=== PATIENT | male | born 1950 | race Caucasian/White ===

== ENCOUNTER 2017-12-18 02:45 | Inpatient (IN) | payer MEDICARE ==
[~2017-12-18] VITALS: Ht 175.3 cm; Wt 97.5 kg
[~2017-12-18 02:45] MED LIST: AMIO200T PO; AMIO200T42 PO; APIX5TAB PO; ASPI-496 PO; BENA40TA2 PO; DEXA2TAB PO; DILT120T3 PO; ESCI10TA10 PO; ESCI20TA10 PO; FLEC50TA25 PO; HYDR12.53 PO; LENA5CAP PO; OMEP20CA9 PO; OXYC1TAB7 PO; RIVA20TA PO; TAMS-11 PO; TERA1CAP3 PO
[2017-12-18] MEDS ORDERED: ASPIRIN 81 MG TABLET CHEW ONE (03:16)
[2017-12-18] MEDS ORDERED: ASPIRIN 81 MG TABLET CHEW PO ONE (03:30)
[2017-12-18] MEDS ORDERED: SODIUM CHLORIDE FLUSH 10ML SYR IVF ONE (03:30)
[2017-12-18 03:39] LABS: BASOPHILS # (AUTO) 0.01 x10^3/uL (0-0.1); BASOPHILS % (AUTO) 0 % (0-1); EOSINOPHILS % (AUTO) 3 % (1-7); LYMPHOCYTES # (AUTO) 1.11 x10^3/uL (1-3.4); LYMPHOCYTES % (AUTO) 28 % (22-44); MD NO; MEAN CORPUSCULAR HEMOGLOBIN 34.4 pg (27.5-34.5); MEAN CORPUSCULAR HGB CONC 33.7 g/dL (33.2-36.2); MEAN PLATELET VOLUME 8.1 fL (7.4-10.4); MONOCYTES # (AUTO) 0.71 x10^3/uL (0.2-0.8); MONOCYTES % (AUTO) 18 % (2-9); NEUTROPHILS # (AUTO) 1.99 x10^3/uL (1.8-6.8); NEUTROPHILS % (AUTO) 51 % (42-75); PLATELET COUNT 139 x10^3/uL (130-400); RED BLOOD COUNT 4.27 x10^6/uL (4.38-5.82); RED CELL DISTRIBUTION WIDTH 15.1 % (9.4-14.8)
[2017-12-18 03:47] LABS: ANION GAP 6 mmol/L (5-15); CALCIUM 8.5 mg/dL (8.5-10.1); CHLORIDE 112 mmol/L (98-107); CREATININE 0.88 mg/dL (0.7-1.3)
[2017-12-18 03:51] LABS: TROPONIN I < 0.015 ng/mL (0.000-0.045)
[2017-12-18] MEDS ORDERED: MORPHINE SULFATE 4 MG/ML, 1ML ONE (04:44)
[2017-12-18] MEDS ORDERED: ONDANSETRON 2MG/ML, 2ML ONE (04:44)
[2017-12-18] MEDS ORDERED: MORPHINE SULFATE 4 MG/ML, 1ML IVPush PRN (05:00)
[2017-12-18] MEDS ORDERED: ONDANSETRON 2MG/ML, 2ML IVPush ONE (05:00)
[2017-12-18 05:43] VITALS: BP 135/75
[2017-12-18] MEDS ORDERED: SODIUM CHLORIDE 0.9% 1,000 ML IV SCH (05:56)
[2017-12-18] MEDS ORDERED: ENALAPRILAT 1.25 MG/ML, 2ML IVPush PRN (06:00)
[2017-12-18] MEDS ORDERED: ACETAMINOPHEN 325 MG TABLET PO PRN (06:00)
[2017-12-18] MEDS ORDERED: BISACODYL 10 MG SUPP PR PRN (06:00)
[2017-12-18] MEDS ORDERED: ASPIRIN 325 MG TABLET EC PO SCH (06:00)
[2017-12-18] MEDS ORDERED: POLYETHYLENE GLYCOL 17 GM PACKET PO PRN (06:00)
[2017-12-18] MEDS ORDERED: hydrALAzine 20 MG/ML, 1ML IVPush PRN (06:00)
[2017-12-18] MEDS ORDERED: ONDANSETRON 2MG/ML, 2ML IVPush PRN (06:00)
[2017-12-18] MEDS ORDERED: morphine SULFATE 10 MG/ML, 1ML IVPush PRN (06:00)
[2017-12-18] MEDS ORDERED: PHARMACY INSTRUCTION MC PRN (06:30)
[2017-12-18] MEDS ORDERED: NITROGLYCERIN 0.4 MG BOTTLE (25 TABS) SL PRN (06:30)
[2017-12-18] MEDS: HEPARIN 5,000 UNITS/ML, 1ML SQ SCH ×2 (06:42→14:00)
[2017-12-18 06:52] LABS: FREE T4 (FREE THYROXINE) 1.36 ng/dL (0.76-1.46); THYROID STIMULATING HORMONE 1.32 mIU/L (0.358-3.740)
[2017-12-18 07:13] LABS: HEMOGLOBIN A1C 5.7 % (4.2-6.3)
[2017-12-18] MEDS ORDERED: AMIODARONE 200 MG TABLET ONE ×2 (07:34→07:36)
[2017-12-18] MEDS ORDERED: BENAZEPRIL 20 MG TABLET ONE (07:34)
[2017-12-18] MEDS ORDERED: ACET325T14 PO (07:57)
[2017-12-18] MEDS ORDERED: CYCL5TAB PO (07:57)
[2017-12-18 08:43] LABS: CHOLESTEROL, TOTAL 104 mg/dL (140-239); TRIGLYCERIDES 66 mg/dL (50-200); VLDL CHOLESTEROL 13 mg/dL (0-25)
[2017-12-18 08:46] LABS: HDL CHOLESTEROL (DIRECT) 59 mg/dL (40-60); TROPONIN I < 0.015 ng/mL (0.000-0.045)
[2017-12-18] MEDS ORDERED: REGADENOSON 0.4 MG/5 ML SYRINGE ONE (08:48)
[2017-12-18] MEDS ORDERED: SENNA/DOCUSATE TABLET PO SCH (09:00)
[2017-12-18] MEDS ORDERED: AMIODARONE 200 MG TABLET PO SCH (09:00)
[2017-12-18] MEDS ORDERED: TEMPLATE NON-FORMULARY MED. (Escitalopram Oxalate** (Lexapro**) 10 MG) HOMEMEDPO SCH (09:00)
[2017-12-18] MEDS ORDERED: LENALIDOMIDE 5 MG PO SCH (09:00)
[2017-12-18] MEDS ORDERED: BENAZEPRIL 20 MG TABLET PO SCH (09:00)
[2017-12-18] MEDS ORDERED: DILTIAZEM CD 180 MG CAP.ER.24H PO SCH (09:00)
[2017-12-18 10:03] LABS: CHOL/HDL RATIO 1.8; HDL CHOL % 57 % (26-37); LDL CHOLESTEROL,CALCULATED 32 mg/dL (54-169); LDL/HDL RATIO 0.5 (0.5-3.0)
[2017-12-18 14:04] VITALS: BP 124/73
[2017-12-18 14:39] LABS: MICROSCOPIC NOT IND
[2017-12-18 15:02] LABS: CULTURE INDICATED? NO
[2017-12-18 15:36] LABS: TROPONIN I < 0.015 ng/mL (0.000-0.045)
[2017-12-18] MEDS ORDERED: TAMSULOSIN 0.4 MG CAP.ER.24H PO SCH (21:00)
== END 2017-12-18 18:12 | disposition home or self-care (01) | DRG 292 ==
LOC: ED 04:24 → EDIP 04:36 → 5SO 05:30
PROVIDERS: ADMIT Internal Medicine; ATTEND Internal Medicine
DX: I11.0 Hypertensive heart disease with heart failure (principal); E44.0 Moderate protein-calorie malnutrition; I48.2 Chronic atrial fibrillation; R07.89 Other chest pain; C90.01 Multiple myeloma in remission; E78.5 Hyperlipidemia, unspecified; N40.0 Benign prostatic hyperplasia without lower urinary tract symptoms; I50.32 Chronic diastolic (congestive) heart failure; Z68.31 Body mass index [BMI] 31.0-31.9, adult; Z79.82 Long term (current) use of aspirin; Z85.6 Personal history of leukemia; Z91.19 Patient's noncompliance with other medical treatment and regimen
CPT/HCPCS: 36415; 71045; 78452; 80048; 80061; 81003; 82040; 83036; 83735; 83880; 84439; 84443; 84484; 85025; 93005; 93017; 96374; 96375; J1644; J2405; J2785; A9502; C9898; J7030

== ENCOUNTER → 2017-12-29 | Outpatient (CLI) | payer MEDICARE ==
[~2017-12-29] MED LIST changes: +ACET325T14 PO; +CYCL5TAB PO
== END | disposition home or self-care (01) ==
LOC: CFH 14:38
PROVIDERS: ATTEND Internal Medicine Cardiovascular Disease
DX: I48.91 Unspecified atrial fibrillation (principal)
CPT/HCPCS: 71046

== ENCOUNTER 2018-09-30 14:07 | Emergency (ER) | payer MEDICARE ==
[~2018-09-30] VITALS: Ht 182.9 cm; Wt 88.9 kg
[~2018-09-30 14:07] MED LIST changes: +AMOX1TAB12 PO; -BENA40TA2 PO; +BENA40TA3 PO; +GUAI200T3 PO
[2018-09-30] MEDS ORDERED: SODIUM CHLORIDE FLUSH 10ML SYR IVF ONE (14:30)
[2018-09-30 14:48] LABS: BASOPHILS # (AUTO) 0.02 x10^3/uL (0-0.1); BASOPHILS % (AUTO) 0 % (0-1); EOSINOPHILS # (AUTO) 0.04 x10^3/uL (0-0.4); EOSINOPHILS % (AUTO) 1 % (1-7); LYMPHOCYTES # (AUTO) 1.39 x10^3/uL (1-3.4); LYMPHOCYTES % (AUTO) 30 % (22-44); MD NO; MEAN CORPUSCULAR HEMOGLOBIN 33.5 pg (27.5-34.5); MEAN CORPUSCULAR HGB CONC 33.5 g/dL (33.2-36.2); MEAN CORPUSCULAR VOLUME 100.2 fL (81-97); MONOCYTES # (AUTO) 0.45 x10^3/uL (0.2-0.8); MONOCYTES % (AUTO) 10 % (2-9); NEUTROPHILS # (AUTO) 2.78 x10^3/uL (1.8-6.8); NEUTROPHILS % (AUTO) 59 % (42-75); PLATELET COUNT 172 x10^3/uL (130-400); RED BLOOD COUNT 4.12 x10^6/uL (4.38-5.82); RED CELL DISTRIBUTION WIDTH 15.8 % (9.4-14.8)
[2018-09-30 14:58] LABS: CALCIUM 8.5 mg/dL (8.5-10.1); CHLORIDE 110 mmol/L (98-107)
[2018-09-30 15:06] LABS: ALANINE AMINOTRANSFERASE 20 U/L (12-78); ALBUMIN 3.1 g/dL (3.4-5.0); ALKALINE PHOSPHATASE 94 U/L (45-117); ANION GAP 8 mmol/L (5-15); BILIRUBIN,TOTAL 0.6 mg/dL (0.2-1.0); CREATININE 0.84 mg/dL (0.7-1.3); TOTAL PROTEIN 6.9 g/dL (6.4-8.2); TROPONIN I < 0.015 ng/mL (0.000-0.045)
[2018-09-30] MEDS ORDERED: OMNIPAQUE 350 MG/ML, 100ML BOTTLE ONE (15:30)
[2018-09-30 16:53] VITALS: BP 116/79
== END 2018-09-30 17:11 | disposition home or self-care (01) ==
LOC: ED 14:55
DX: J18.9 Pneumonia, unspecified organism (principal); I10 Essential (primary) hypertension; R04.2 Hemoptysis; I48.91 Unspecified atrial fibrillation
CPT/HCPCS: 36415; 71275; 80053; 84484; 85025; 93005; 99285; Q9967

== ENCOUNTER 2018-11-26 02:03 | Inpatient (IN) | payer MEDICARE ==
[~2018-11-26] VITALS: Ht 172.7 cm; Wt 82.0 kg
[~2018-11-26 02:03] MED LIST changes: +HYDR12.517 PO; -HYDR12.53 PO
--- NOTE | 2018-11-26 02:19 | NUR ---
PT BIB [facility] TONIGHT BECAUSE OF INCREASING SOB AND CP AFTER SEVERAL DAY URI. PT REPORTS HISTORY OF LUNG CANCER AND HTN, BUT DENIES ANY OTHER MAJOR ILLNESSES. PT IN GOWN IN [facility]. PT ATTACHED TO FIELD INVESTIGATOR, PULSE OXIMETER, AND BP CUFF. PT VSS. ALICIA VAZQUEZ AT FOR PT HISTORY AND ASSESSMENT. PT EDUCATED ON ER PROCESS AND POC AND VERBALIZES UNDERSTANDING. CALL LIGHT WITHIN REACH. PT DENIES ANY OTHER NEEDS AT THIS TIME. AWAITING NEW ORDERS.
[2018-11-26 02:36] LABS: BASOPHILS # (AUTO) 0.02 x10^3/uL (0-0.1); BASOPHILS % (AUTO) 0 % (0-1); EOSINOPHILS # (AUTO) 0.19 x10^3/uL (0-0.4); EOSINOPHILS % (AUTO) 4 % (1-7); LYMPHOCYTES # (AUTO) 1.09 x10^3/uL (1-3.4); LYMPHOCYTES % (AUTO) 23 % (22-44); MD NO; MEAN CORPUSCULAR HEMOGLOBIN 32.7 pg (27.5-34.5); MEAN CORPUSCULAR VOLUME 96.2 fL (81-97); MEAN PLATELET VOLUME 7.7 fL (7.4-10.4); MONOCYTES # (AUTO) 0.55 x10^3/uL (0.2-0.8); MONOCYTES % (AUTO) 12 % (2-9); NEUTROPHILS # (AUTO) 2.81 x10^3/uL (1.8-6.8); NEUTROPHILS % (AUTO) 60 % (42-75); PLATELET COUNT 203 x10^3/uL (130-400); RED BLOOD COUNT 3.71 x10^6/uL (4.38-5.82); RED CELL DISTRIBUTION WIDTH 14.9 % (9.4-14.8)
[2018-11-26 02:50] LABS: ALANINE AMINOTRANSFERASE 14 U/L (12-78); ALBUMIN 2.8 g/dL (3.4-5.0); ANION GAP 5 mmol/L (5-15); CALCIUM 8.6 mg/dL (8.5-10.1); CHLORIDE 109 mmol/L (98-107)
[2018-11-26 02:52] LABS: ALKALINE PHOSPHATASE 97 U/L (45-117); BILIRUBIN,TOTAL 0.6 mg/dL (0.2-1.0); TOTAL PROTEIN 6.1 g/dL (6.4-8.2)
[2018-11-26 02:54] LABS: TROPONIN I 0.044 ng/mL (0.000-0.045)
[2018-11-26] MEDS ORDERED: OMNIPAQUE 350 MG/ML, 100ML BOTTLE ONE (03:43)
--- NOTE | 2018-11-26 03:57 | NUR ---
pt back from ct. pt resting comfortably in [facility] at this time;
--- NOTE | 2018-11-26 04:29 | NUR ---
PT RESTING IN [facility]. PT DENIES ANY NEEDS AT THIS TIME. PT HAS CALL LIGHT WITHIN REACH.
[2018-11-26 04:50] LABS: CULTURE INDICATED? YES; MICROSCOPIC INDICATED
[2018-11-26] MEDS ORDERED: MORPHINE SULFATE 4 MG/ML, 1ML IVPush PRN (05:00)
[2018-11-26] MEDS ORDERED: ONDANSETRON 2MG/ML, 2ML IVPush PRN ×2 (05:00→05:30)
[2018-11-26] MEDS: ENOXAPARIN 40 MG/0.4 ML SQ SCH (05:30)
[2018-11-26] MEDS ORDERED: hydrALAzine 20 MG/ML, 1ML IVPush PRN (05:30)
[2018-11-26] MEDS ORDERED: morphine SULFATE 10 MG/ML, 1ML IVPush PRN (05:30)
[2018-11-26] MEDS ORDERED: GUAIFENESIN/COD200MG-20MG/10ML LIQUID PO PRN (05:30)
[2018-11-26] MEDS ORDERED: DOCUSATE 100 MG CAPSULE PO PRN (05:30)
[2018-11-26] MEDS ORDERED: ACETAMINOPHEN 325 MG TABLET PO PRN (05:30)
[2018-11-26 06:18] VITALS: BP 113/73
[2018-11-26] MEDS ORDERED: BENAZEPRIL 10 MG TABLET ONE ×2 (08:23→20:43)
[2018-11-26] MEDS: PIPERACILLIN/TAZO/PMX 3.375GM 50 ML IV SCH ×3 (08:31→20:45)
[2018-11-26] MEDS: CITALOPRAM 20 MG TABLET PO SCH (08:32)
[2018-11-26] MEDS: BENAZEPRIL 20 MG TABLET PO SCH ×2 (08:32→20:49)
[2018-11-26] MEDS: DILTIAZEM CD 180 MG CAP.ER.24H PO SCH (08:33)
[2018-11-26 10:05] LABS: TROPONIN I 0.041 ng/mL (0.000-0.045)
[2018-11-26] MEDS: HYDROcodone/APAP 5/325 TABLET PO PRN ×2 (10:07→20:16)
[2018-11-26 13:11] VITALS: BP 113/70
[2018-11-26 14:51] LABS: TROPONIN I 0.032 ng/mL (0.000-0.045)
[2018-11-26 20:22] VITALS: BP 113/69
[2018-11-26] MEDS: TAMSULOSIN 0.4 MG CAP.ER.24H PO SCH (20:45)
[2018-11-26] MEDS ORDERED: TEMAZEPAM 15 MG CAPSULE PO PRN (23:00)
[2018-11-27] MEDS: PIPERACILLIN/TAZO/PMX 3.375GM 50 ML IV SCH ×4 (03:24→21:44)
[2018-11-27 03:27] VITALS: BP 98/59
[2018-11-27] MEDS: ENOXAPARIN 40 MG/0.4 ML SQ SCH (04:54)
[2018-11-27 05:30] LABS: ANION GAP 5 mmol/L (5-15); CALCIUM 8.3 mg/dL (8.5-10.1); CHLORIDE 106 mmol/L (98-107)
[2018-11-27 05:34] LABS: CHOLESTEROL, TOTAL 87 mg/dL (140-239); CREATININE 0.81 mg/dL (0.7-1.3); HDL CHOLESTEROL (DIRECT) 38 mg/dL (40-60); TRIGLYCERIDES 59 mg/dL (50-200); VLDL CHOLESTEROL 12 mg/dL (0-25)
[2018-11-27 05:35] LABS: CHOL/HDL RATIO 2.3; HDL CHOL % 44 % (26-37); LDL CHOLESTEROL,CALCULATED 37 mg/dL (54-169)
[2018-11-27 05:46] LABS: BASOPHILS # (AUTO) 0.02 x10^3/uL (0-0.1); BASOPHILS % (AUTO) 0 % (0-1); EOSINOPHILS # (AUTO) 0.29 x10^3/uL (0-0.4); EOSINOPHILS % (AUTO) 6 % (1-7); LYMPHOCYTES # (AUTO) 1.08 x10^3/uL (1-3.4); LYMPHOCYTES % (AUTO) 22 % (22-44); MD NO; MEAN CORPUSCULAR HEMOGLOBIN 33.6 pg (27.5-34.5); MEAN CORPUSCULAR HGB CONC 34.4 g/dL (33.2-36.2); MEAN CORPUSCULAR VOLUME 97.8 fL (81-97); MEAN PLATELET VOLUME 8.4 fL (7.4-10.4); MONOCYTES # (AUTO) 0.57 x10^3/uL (0.2-0.8); MONOCYTES % (AUTO) 12 % (2-9); NEUTROPHILS # (AUTO) 2.99 x10^3/uL (1.8-6.8); NEUTROPHILS % (AUTO) 60 % (42-75); PLATELET COUNT 185 x10^3/uL (130-400); RED BLOOD COUNT 3.43 x10^6/uL (4.38-5.82); RED CELL DISTRIBUTION WIDTH 15.3 % (9.4-14.8)
[2018-11-27 07:41] VITALS: BP 99/64
[2018-11-27] MEDS: DILTIAZEM CD 180 MG CAP.ER.24H PO SCH (08:36)
[2018-11-27] MEDS: BENAZEPRIL 20 MG TABLET PO SCH ×2 (08:36→19:30)
[2018-11-27] MEDS: CITALOPRAM 20 MG TABLET PO SCH (08:36)
[2018-11-27 13:15] VITALS: BP 107/65
[2018-11-27] MEDS ORDERED: BENAZEPRIL 10 MG TABLET ONE (19:24)
[2018-11-27] MEDS: HYDROcodone/APAP 5/325 TABLET PO PRN (19:29)
[2018-11-27] MEDS: TAMSULOSIN 0.4 MG CAP.ER.24H PO SCH (19:29)
[2018-11-27 20:18] VITALS: BP 107/62
[2018-11-28] MEDS: HYDROcodone/APAP 5/325 TABLET PO PRN (00:05)
[2018-11-28 02:39] VITALS: BP 110/69
[2018-11-28] MEDS: PIPERACILLIN/TAZO/PMX 3.375GM 50 ML IV SCH ×2 (03:29→08:40)
[2018-11-28 05:14] LABS: BASOPHILS # (AUTO) 0.02 x10^3/uL (0-0.1); BASOPHILS % (AUTO) 0 % (0-1); EOSINOPHILS # (AUTO) 0.14 x10^3/uL (0-0.4); EOSINOPHILS % (AUTO) 3 % (1-7); LYMPHOCYTES # (AUTO) 0.94 x10^3/uL (1-3.4); LYMPHOCYTES % (AUTO) 18 % (22-44); MD NO; MEAN CORPUSCULAR HGB CONC 32.7 g/dL (33.2-36.2); MEAN CORPUSCULAR VOLUME 97.9 fL (81-97); MEAN PLATELET VOLUME 8.2 fL (7.4-10.4); MONOCYTES # (AUTO) 0.55 x10^3/uL (0.2-0.8); MONOCYTES % (AUTO) 11 % (2-9); NEUTROPHILS # (AUTO) 3.51 x10^3/uL (1.8-6.8); NEUTROPHILS % (AUTO) 68 % (42-75); PLATELET COUNT 181 x10^3/uL (130-400); RED BLOOD COUNT 3.43 x10^6/uL (4.38-5.82)
[2018-11-28 05:24] LABS: ANION GAP 6 mmol/L (5-15); CALCIUM 7.9 mg/dL (8.5-10.1); CHLORIDE 104 mmol/L (98-107); CREATININE 0.73 mg/dL (0.7-1.3)
[2018-11-28] MEDS: ENOXAPARIN 40 MG/0.4 ML SQ SCH (05:52)
[2018-11-28 07:49] VITALS: BP 102/66
[2018-11-28] MEDS ORDERED: BENAZEPRIL 10 MG TABLET ONE ×2 (07:59→08:00)
[2018-11-28] MEDS: CITALOPRAM 20 MG TABLET PO SCH (08:07)
[2018-11-28] MEDS: DILTIAZEM CD 180 MG CAP.ER.24H PO SCH (08:08)
[2018-11-28] MEDS: BENAZEPRIL 20 MG TABLET PO SCH (08:09)
[2018-11-28] MEDS ORDERED: Guaifenesin/Cod200mg-20MG/10ML PO (10:16)
[2018-11-28] MEDS ORDERED: CEFD300C37 PO ×2 (10:16)
[2018-11-28] MEDS ORDERED: ACET325T14 PO (10:16)
== END 2018-11-28 17:19 | disposition home or self-care (01) | DRG 177 ==
LOC: ED 02:52 → EDIP 04:53 → 5SO 06:24
PROVIDERS: ADMIT Internal Medicine; ATTEND Internal Medicine
DX: J15.6 Pneumonia due to other Gram-negative bacteria (principal); E43 Unspecified severe protein-calorie malnutrition; I50.32 Chronic diastolic (congestive) heart failure; C90.00 Multiple myeloma not having achieved remission; C78.00 Secondary malignant neoplasm of unspecified lung; E78.5 Hyperlipidemia, unspecified; I11.0 Hypertensive heart disease with heart failure; Z68.27 Body mass index [BMI] 27.0-27.9, adult; Z87.891 Personal history of nicotine dependence; Z82.49 Family history of ischemic heart disease and other diseases of the circulatory system; Z82.3 Family history of stroke; I48.2 Chronic atrial fibrillation; N40.0 Benign prostatic hyperplasia without lower urinary tract symptoms; Z66 Do not resuscitate; Z79.2 Long term (current) use of antibiotics; Z85.820 Personal history of malignant melanoma of skin; R07.89 Other chest pain
CPT/HCPCS: 36415; 71046; 71275; 80048; 80053; 80061; 81001; 83735; 84484; 85025; 87040; 87086; 93005; 99285; G0378; J2543; Q9967

== ENCOUNTER 2018-12-11 13:50 | Observation (INO) | payer MEDICARE ==
[~2018-12-11] VITALS: Ht 175.3 cm; Wt 82.2 kg
[~2018-12-11 13:50] MED LIST changes: +CEFD300C37 PO; +Guaifenesin/Cod200mg-20MG/10ML PO
[2018-12-11] MEDS ORDERED: ASPIRIN 81 MG TABLET CHEW ONE (14:21)
[2018-12-11] MEDS ORDERED: ONDANSETRON 2MG/ML, 2ML ONE (14:21)
[2018-12-11] MEDS ORDERED: MORPHINE SULFATE 4 MG/ML, 1ML ONE (14:21)
[2018-12-11] MEDS ORDERED: ASPIRIN 81 MG TABLET CHEW PO ONE (14:30)
[2018-12-11] MEDS ORDERED: SODIUM CHLORIDE FLUSH 10ML SYR IVF ONE (14:30)
[2018-12-11] MEDS ORDERED: MORPHINE SULFATE 4 MG/ML, 1ML IVPush PRN (14:30)
[2018-12-11] MEDS ORDERED: ONDANSETRON 2MG/ML, 2ML IVPush ONE (14:30)
[2018-12-11 14:31] LABS: BASOPHILS # (AUTO) 0.01 x10^3/uL (0-0.1); BASOPHILS % (AUTO) 0 % (0-1); EOSINOPHILS # (AUTO) 0.15 x10^3/uL (0-0.4); EOSINOPHILS % (AUTO) 3 % (1-7); LYMPHOCYTES # (AUTO) 0.84 x10^3/uL (1-3.4); LYMPHOCYTES % (AUTO) 15 % (22-44); MD NO; MEAN CORPUSCULAR HEMOGLOBIN 31.8 pg (27.5-34.5); MEAN CORPUSCULAR HGB CONC 33.2 g/dL (33.2-36.2); MEAN CORPUSCULAR VOLUME 95.8 fL (81-97); MEAN PLATELET VOLUME 7.9 fL (7.4-10.4); MONOCYTES # (AUTO) 0.58 x10^3/uL (0.2-0.8); MONOCYTES % (AUTO) 10 % (2-9); NEUTROPHILS # (AUTO) 3.99 x10^3/uL (1.8-6.8); NEUTROPHILS % (AUTO) 72 % (42-75); PLATELET COUNT 220 x10^3/uL (130-400); RED BLOOD COUNT 3.93 x10^6/uL (4.38-5.82); RED CELL DISTRIBUTION WIDTH 15.8 % (9.4-14.8)
[2018-12-11 14:43] LABS: ANION GAP 8 mmol/L (5-15); CALCIUM 8.7 mg/dL (8.5-10.1); CHLORIDE 104 mmol/L (98-107)
[2018-12-11 14:49] LABS: ALANINE AMINOTRANSFERASE 15 U/L (12-78); ALKALINE PHOSPHATASE 102 U/L (45-117); BILIRUBIN,TOTAL 0.9 mg/dL (0.2-1.0); CREATININE 0.71 mg/dL (0.7-1.3); TOTAL PROTEIN 6.8 g/dL (6.4-8.2)
[2018-12-11] MEDS ORDERED: CEFTRIAXONE PMX 1GM/50ML 50 ML IVPB ONE (15:00)
[2018-12-11] MEDS ORDERED: CEFTRIAXONE 1,000 MG in SODIUM CHLORIDE 0.9% 50 ML IVPB ONE (15:00)
[2018-12-11] MEDS ORDERED: SODIUM CHLORIDE 0.9% 1,000ML IVBOLUS ONE (15:00)
[2018-12-11] MEDS ORDERED: AZITHROMYCIN 500 MG in SODIUM CHLORIDE 0.9% 250 ML IV ONE (15:00)
[2018-12-11] MEDS ORDERED: OMNIPAQUE 350 MG/ML, 100ML BOTTLE ONE (15:16)
[2018-12-11] MEDS ORDERED: CEFTRIAXONE PMX 1GM/50ML 50 ML ONE (15:39)
[2018-12-11] MEDS ORDERED: SODIUM CHLORIDE FLUSH 10ML SYR IVF PRN (16:30)
[2018-12-11] MEDS ORDERED: SODIUM CHLORIDE 0.9% 1,000 ML IV SCH (16:48)
[2018-12-11] MEDS ORDERED: CEFTRIAXONE PMX 1GM/50ML 50 ML IV SCH (17:00)
[2018-12-11] MEDS ORDERED: ACETAMINOPHEN 325 MG TABLET PO PRN (17:00)
[2018-12-11] MEDS ORDERED: ONDANSETRON ODT 4 MG PO PRN (17:00)
[2018-12-11] MEDS ORDERED: hydrALAzine 20 MG/ML, 1ML IVPush PRN (17:00)
[2018-12-11] MEDS ORDERED: LABETALOL 5MG/ML, 20ML IVPush PRN (17:00)
[2018-12-11] MEDS ORDERED: ONDANSETRON 2MG/ML, 2ML IVPush PRN (17:00)
[2018-12-11] MEDS ORDERED: DOXYCYCLINE 100 MG in DEXTROSE 5% 250 ML IV SCH (17:00)
[2018-12-11] MEDS ORDERED: PIPERACILLIN/TAZO/PMX 3.375GM 50 ML ONE (18:02)
--- NOTE | 2018-12-11 18:10 | NUR ---
CARDIAC DIET TRAY DELIVERED. PT SITTING UP AT BEDSIDE. NAD NOTED, VSS
[2018-12-11 18:12] LABS: TROPONIN I 0.127 ng/mL (0.000-0.045)
[2018-12-11] MEDS: PIPERACILLIN/TAZO/PMX 3.375GM 50 ML IV SCH ×2 (18:13→23:18)
--- NOTE | 2018-12-11 20:09 | NUR ---
PT MOVED TO HOSPITAL BED. FAMILY AT BEDSIDE. PT HAS NO NEEDS AT THIS TIME. CALL LIGHT IN REACH
[2018-12-11 20:47] VITALS: BP 123/77
[2018-12-11] MEDS: TAMSULOSIN 0.4 MG CAP.ER.24H PO SCH (22:48)
[2018-12-11] MEDS: BENAZEPRIL 20 MG TABLET PO SCH (22:50)
[2018-12-11] MEDS: MORPHINE SULFATE 4 MG/ML, 1ML IVPush PRN (22:51)
[2018-12-11 23:04] LABS: TROPONIN I 0.129 ng/mL (0.000-0.045)
[2018-12-12 00:15] VITALS: BP 101/58
[2018-12-12 05:34] LABS: ANION GAP 7 mmol/L (5-15); CALCIUM 8.2 mg/dL (8.5-10.1); CHLORIDE 106 mmol/L (98-107); CREATININE 0.62 mg/dL (0.7-1.3)
[2018-12-12 05:49] LABS: BASOPHILS # (AUTO) 0.02 x10^3/uL (0-0.1); BASOPHILS % (AUTO) 0 % (0-1); EOSINOPHILS # (AUTO) 0.32 x10^3/uL (0-0.4); EOSINOPHILS % (AUTO) 6 % (1-7); LYMPHOCYTES # (AUTO) 0.88 x10^3/uL (1-3.4); LYMPHOCYTES % (AUTO) 15 % (22-44); MD NO; MEAN CORPUSCULAR HEMOGLOBIN 32.9 pg (27.5-34.5); MEAN CORPUSCULAR HGB CONC 33.9 g/dL (33.2-36.2); MEAN CORPUSCULAR VOLUME 97.1 fL (81-97); MEAN PLATELET VOLUME 8.4 fL (7.4-10.4); MONOCYTES # (AUTO) 0.63 x10^3/uL (0.2-0.8); MONOCYTES % (AUTO) 11 % (2-9); NEUTROPHILS # (AUTO) 3.95 x10^3/uL (1.8-6.8); NEUTROPHILS % (AUTO) 68 % (42-75); PLATELET COUNT 192 x10^3/uL (130-400); RED BLOOD COUNT 3.27 x10^6/uL (4.38-5.82); RED CELL DISTRIBUTION WIDTH 15.6 % (9.4-14.8)
[2018-12-12] MEDS: PIPERACILLIN/TAZO/PMX 3.375GM 50 ML IV SCH ×3 (05:57→18:06)
[2018-12-12 07:30] VITALS: BP 92/61
[2018-12-12] MEDS: BENAZEPRIL 20 MG TABLET PO SCH ×2 (09:00→20:17)
[2018-12-12] MEDS ORDERED: DILTIAZEM 60 MG TABLET ONE (09:23)
[2018-12-12] MEDS: DILTIAZEM 120 MG TABLET PO SCH (09:26)
[2018-12-12] MEDS ORDERED: BISACODYL 5 MG EC TABLET PO PRN (12:00)
[2018-12-12] MEDS: PANTOPRAZOLE 40 MG IV IVPush SCH (12:02)
[2018-12-12 14:55] VITALS: BP 105/67
[2018-12-12] MEDS: MORPHINE SULFATE 4 MG/ML, 1ML IVPush PRN (14:59)
[2018-12-12] MEDS ORDERED: OMNIPAQUE 350 MG/ML, 100ML BOTTLE ONE (15:35)
[2018-12-12 19:35] VITALS: BP 103/66
[2018-12-12] MEDS: DOCUSATE 100 MG CAPSULE PO SCH (20:18)
[2018-12-12] MEDS: CITALOPRAM 20 MG TABLET PO SCH (20:18)
[2018-12-12] MEDS: TAMSULOSIN 0.4 MG CAP.ER.24H PO SCH (20:19)
[2018-12-13] MEDS: MORPHINE SULFATE 4 MG/ML, 1ML IVPush PRN ×2 (00:05→15:14)
[2018-12-13] MEDS: PANTOPRAZOLE 40 MG IV IVPush SCH ×2 (00:05→12:06)
[2018-12-13] MEDS: PIPERACILLIN/TAZO/PMX 3.375GM 50 ML IV SCH ×3 (00:05→12:06)
[2018-12-13 01:00] VITALS: BP_SYST 106; BP_SYST 143; BP_DIAS 66; BP_DIAS 77
[2018-12-13 07:35] VITALS: BP 112/69
[2018-12-13] MEDS: DOCUSATE 100 MG CAPSULE PO SCH (08:38)
[2018-12-13] MEDS: CITALOPRAM 20 MG TABLET PO SCH (08:38)
[2018-12-13] MEDS: DILTIAZEM 120 MG TABLET PO SCH (08:38)
[2018-12-13] MEDS: BENAZEPRIL 20 MG TABLET PO SCH (08:39)
[2018-12-13 13:50] VITALS: BP 102/66
[2018-12-13] MEDS ORDERED: AMOX1TAB64 PO (16:01)
[2018-12-13] MEDS ORDERED: PANT20TA2 PO (16:01)
== END 2018-12-13 17:55 | disposition home or self-care (01) ==
LOC: ED 16:01 → EDIP 16:10 → INTOOBSV 16:10 → 5SO 20:34 → 3NW 12-12 12:10
PROVIDERS: ADMIT Hospitalist; ATTEND Hospitalist
DX: J18.9 Pneumonia, unspecified organism (principal); C90.00 Multiple myeloma not having achieved remission; C43.9 Malignant melanoma of skin, unspecified; C78.00 Secondary malignant neoplasm of unspecified lung; C78.7 Secondary malignant neoplasm of liver and intrahepatic bile duct; E43 Unspecified severe protein-calorie malnutrition; E78.5 Hyperlipidemia, unspecified; I11.0 Hypertensive heart disease with heart failure; I48.2 Chronic atrial fibrillation; I50.32 Chronic diastolic (congestive) heart failure; N40.0 Benign prostatic hyperplasia without lower urinary tract symptoms; Z82.49 Family history of ischemic heart disease and other diseases of the circulatory system; Z85.6 Personal history of leukemia
CPT/HCPCS: 36415; 71045; 71275; 74177; 80048; 80053; 83605; 83735; 84100; 84145; 84484; 85025; 87040; 93005; 96365; 96366; 96367; 96375; 96376; 99284; C9113; G0378; J0456; J0696; J2405; J2543; J7030; J7050; Q9967